=== PATIENT | male | born 1950 | race Caucasian/White ===

== ENCOUNTER 2018-06-15 10:47 | Outpatient (CLI) | payer BC | END 2018-06-15 10:48 | disposition home or self-care (01) | LOC: BICRAD 10:47 | PROVIDERS: ATTEND Family Medicine | DX: J18.9 Pneumonia, unspecified organism (principal) | CPT/HCPCS: 36415; 71046; 80048; 85025 ==

== ENCOUNTER 2018-09-12 16:12 | Outpatient (CLI) | payer BC ==
[2018-09-12 17:20] LABS: Hemoglobin 15.5 g/dL (14.0-18.0); Mean Corpuscular HGB CONC 33.8 g/dL (32.0-36.0); Mean Corpuscular Hemoglobin 33.8 pg (27.0-31.0); Mean Platelet Volume 7.8 fL (7.4-10.4); Platelet Count 178 thou/uL (130-400); RBC Distribution Width 12.2 % (11.5-14.5); Red Blood Cell (RBC) Count 4.58 mill/uL (4.70-6.10); White Blood Cell (WBC) Count 5.1 thou/uL (4.8-10.8)
[2018-09-12 17:28] LABS: ALT (SGPT) 15 U/L (8-55); AST (SGOT) 18 U/L (5-34); Albumin 3.9 g/dL (3.4-4.8); Alkaline Phosphatase 47 U/L (40-150); Anion Gap 12 mmol/L (10-20); BUN (Urea Nitrogen) 15 mg/dL (8.4-25.7); Bilirubin, Total 0.4 mg/dL (0.2-1.2); Calc. Creatinine Clearance 0 mL/min (70-130); Calcium 8.7 mg/dL (7.8-10.44); Carbon Dioxide 20 mmol/L (23-31); Chloride 108 mmol/L (98-107); Estimated GFR-MDRD 73; Globulin 2.8 g/dL (2.4-3.5); Glucose 133 mg/dL (80-115); Potassium 3.9 mmol/L (3.5-5.1); Protein, Total 6.7 g/dL (5.8-8.1); Sodium 136 mmol/L (136-145)
[2018-09-12 18:44] LABS: Band 1 % (5-11); Eosinophils 7 % (0-10); Lymphocytes 42 % (21-51); MDiff Complete? YES; Monocytes 4 % (0-10); Neutrophil 45 % (42-75); PLT Morphology Comment Appears Adequate; RBC Morphology Normal
--- NOTE | 2018-09-13 14:30 | EKG ---
Test Reason : Blood Pressure : / mmHG Vent. Rate : 062 BPM Atrial Rate : 062 BPM P-R Int : 154 ms QRS Dur : 082 ms QT Int : 422 ms P-R-T Axes : 066 -02 025 degrees QTc Int : 428 ms Normal sinus rhythm Possible Inferior infarct , age undetermined Abnormal ECG No previous ECGs available Confirmed by DANTE HOGAN, DR. Oliver ([id number]) on 09/13/2018 2:29:43 PM Referred By: BONNY Confirmed By:DR. Benito HOWELL MD
== END 2018-09-12 16:13 | disposition home or self-care (01) ==
LOC: LABBT 16:12
PROVIDERS: ATTEND Surgery
DX: Z01.818 Encounter for other preprocedural examination (principal); K42.9 Umbilical hernia without obstruction or gangrene
CPT/HCPCS: 80053; 85025; 93005; 93010

== ENCOUNTER 2018-09-13 05:47 | Day surgery (SDC) | payer BC ==
[2018-09-12 16:37] VITALS: BMI 26.2
[2018-09-13] MEDS ORDERED: Bupivacaine HCl 0.5%/Epinephrine 1:200,000/PF 30 ml Vial ONE (06:31)
[2018-09-13] MEDS ORDERED: Lidocaine 2% PF 5 ML VIAL ONE (06:31)
[2018-09-13] MEDS ORDERED: Fentanyl 100 MCG/2 ML VIAL ONE ×2 (06:42→08:54)
[2018-09-13] MEDS ORDERED: Lidocaine 2% Jelly 5 ML TUBE ONE (06:42)
[2018-09-13] MEDS ORDERED: Midazolam HCl 2 mg/2 ml Vial ONE (06:42)
[2018-09-13] MEDS ORDERED: CEFAZOLIN 2 GM/50 ML BAG ONE (07:17)
[2018-09-13] MEDS ORDERED: Lidocaine 1% PF 5 ML VIAL ONE (13:00)
[2018-09-13] MEDS ORDERED: ePHEDrine/0.9% NaCl/PF SYRINGE 50 mg/10 ml ONE (13:00)
[2018-09-13] MEDS ORDERED: Ondansetron PF 4 MG/2 ML Vial ONE (13:00)
[2018-09-13] MEDS ORDERED: Dexamethasone 20 MG/5 ML VIAL ONE (13:00)
[2018-09-13] MEDS ORDERED: Glycopyrrolate 0.2 MG/ML 5 ML SYRINGE ONE (13:00)
[2018-09-13] MEDS ORDERED: PROPOFOL 200 MG/20 ML VIAL ONE (13:00)
--- NOTE | 2018-09-14 07:58 | OP ---
DATE OF PROCEDURE: 09/13/2018 PREOPERATIVE DIAGNOSIS: Umbilical hernia. PROCEDURE PERFORMED: Umbilical hernia repair with mesh. INDICATIONS FOR PROCEDURE: This is a 68-year-old male with enlarging umbilical hernia, starting to cause discomfort. FINDINGS: 1.5 cm defect, 6.4 cm piece of mesh used. PROCEDURE PERFORMED: After informed consent was obtained, the patient was taken to the operating room and given general endotracheal anesthesia, placed in the supine position. Abdomen was prepped and draped in the usual fashion. Local anesthesia was infiltrated subcutaneously and deep. A subumbilical incision was performed and subcu divided sharply. The umbilical skin was sharply dissected from the hernia sac circumferentially. Then, the hernia sac was sharply dissected from the subcutaneous tissue down to the fascia circumferentially. Then, the hernia sac was released from the abdominal wall and the contents reduced. Hemostasis was achieved with electrocautery. A 6.4-cm Proceed mesh was hydrated, inserted intraabdominally, spread out smooth, and then the wings were sutured to the abdominal wall with interrupted 0 Ethibond suture. The mesh was further secured superior and inferior with an additional 0 Ethibond suture. Hemostasis again assured. The umbilical skin was sutured to the fascia with interrupted 3-0 Vicryl sutures to restore umbilical contour. Then, the skin closed with interrupted 4-0 Rapide. Steri-strips were applied. Sterile bandage was applied. The patient tolerated the procedure well and transferred to Recovery in good condition. Sponge and needle counts were verified correct x2. Job ID: [id number]
== END 2018-09-13 10:58 | disposition home or self-care (01) ==
LOC: SDC 05:47
PROVIDERS: ATTEND Surgery
PROC: 0WUF0JZ Supplement Abdominal Wall with Synthetic Substitute, Open Approach (ICD-10-PCS; principal; 2018-09-13)
DX: K42.9 Umbilical hernia without obstruction or gangrene (principal)
CPT/HCPCS: 80053; 85025; 93005; 93010; J0670; J1100; J2001; J2250; J2405; J2704; J3010